=== PATIENT | male | born 1955 | race Caucasian/White ===

== ENCOUNTER → 2018-07-28 | Outpatient (CLI) | payer MEDICARE, BC ==
--- NOTE | 2018-07-28 14:16 | KCIC ---
Right leg venous Doppler study: Clinical indications: Right calf swelling and redness. Findings: Duplex sonography (including huber scale evaluation and color flow and waveform spectral analysis) of the proximal aspect of the greater saphenous vein and proximal aspect of the profunda femoral vein and the entire length of the common femoral and superficial femoral and popliteal veins and the tibioperoneal trunk and the proximal aspect of the posterior tibial and peroneal veins of the right leg was performed. Normal compressibility, augmentation of color Doppler flow after calf compression, and respiratory variation of Doppler flow is seen. Thus, there are no sonographic findings of deep venous thrombosis within these veins. Impression: There are no sonographic findings of deep venous thrombosis within the veins discussed above of the right lower extremity. Electronically signed by: Ankur Molina MD (07/28/2018 2:13 PM) [id number]
== END | disposition home or self-care (01) ==
LOC: KCIC US 13:37
PROVIDERS: ATTEND Registered Nurse
DX: M79.89 Other specified soft tissue disorders (principal)
CPT/HCPCS: 93971